=== PATIENT | male | born 1945 ===

== ENCOUNTER → 2017-06-04 | Outpatient (CLI) | payer MEDICARE ==
[~2017-06-04] MED LIST: ASPI-515 PO; ATOR40TA PO; CARV-39 PO; CLOP75TA52 PO; DIGO125T6 PO; FURO20TA3 PO; HYDR-3237 PO; HYDR12.53 PO; HYDR12.58 PO; LANS30CA60 PO; LISI-170 PO; METO50TA82 PO; SPIR25TA PO; WARF2TAB PO; WARF4TAB PO
== END | disposition home or self-care (01) ==
LOC: CVU 10:49
PROVIDERS: ATTEND Internal Medicine Cardiovascular Disease
DX: I08.3 Combined rheumatic disorders of mitral, aortic and tricuspid valves (principal); I10 Essential (primary) hypertension; E78.5 Hyperlipidemia, unspecified; I45.6 Pre-excitation syndrome; I25.2 Old myocardial infarction
CPT/HCPCS: 93306

== ENCOUNTER → 2018-07-31 | Outpatient (CLI) | payer MEDICARE, OTHER ==
[~2018-07-31] MED LIST changes: -DIGO125T6 PO; +DIGO125T81 PO; +HYDR12.517 PO; -HYDR12.53 PO; -HYDR12.58 PO; +HYDROCHLOROTH12.5 MG PO
== END | disposition home or self-care (01) ==
LOC: CFH 08:49
PROVIDERS: ATTEND Internal Medicine Cardiovascular Disease
DX: I08.1 Rheumatic disorders of both mitral and tricuspid valves (principal); I10 Essential (primary) hypertension; E78.5 Hyperlipidemia, unspecified; I25.2 Old myocardial infarction
CPT/HCPCS: 93306

== ENCOUNTER → 2019-07-17 | Outpatient (CLI) | payer MEDICARE, OTHER | END | disposition home or self-care (01) | LOC: CFH 13:44 | PROVIDERS: ATTEND Internal Medicine Cardiovascular Disease | DX: I08.3 Combined rheumatic disorders of mitral, aortic and tricuspid valves (principal); I25.2 Old myocardial infarction; I10 Essential (primary) hypertension; Z95.1 Presence of aortocoronary bypass graft | CPT/HCPCS: 93306 ==